=== PATIENT | female | born 1990 | race Caucasian/White ===

== ENCOUNTER → 2018-01-29 | Outpatient (CLI) | payer OTHER | END | disposition home or self-care (01) | LOC: LABWHC1 12:32 | PROVIDERS: ATTEND Obstetrics & Gynecology | DX: N92.6 Irregular menstruation, unspecified (principal) | CPT/HCPCS: 36415; 84702 ==

== ENCOUNTER → 2018-06-24 | Outpatient (CLI) | payer OTHER ==
[2018-06-25 10:38] LABS: Alpha Fetoprotein (M.O.M) 1.98; B-HCG (M.O.M.) 0.35; Gestational Age (days) 0; Inhibin A (M.O.M.) 0.77; Maternal Age at EDD (Yrs) 28; Smoker No; Unconjugated Estriol (M.O.M.) 1.98
== END | disposition home or self-care (01) ==
LOC: LABWHC1 10:41
PROVIDERS: ATTEND Obstetrics & Gynecology
DX: Z34.82 Encounter for supervision of other normal pregnancy, second trimester (principal); Z3A.00 Weeks of gestation of pregnancy not specified
CPT/HCPCS: 36415; 82105; 82677; 84702; 86336; 86762

== ENCOUNTER 2018-11-14 18:39 | Outpatient (CLI) | payer OTHER ==
[2018-11-14 19:34] VITALS: BP 128/75; PULSE 92; RESP 16; TEMP 97.9
--- NOTE | 2018-12-16 13:31 | P.MSEPDOC ---
Presenting Problems - Arrival Data Date of Arrival on Unit: 11/14/18 Time of Arrival on Unit: 18:45 Mode of Transport: Wheelchair Vital Signs - Temperature Temperature: 97.9 F Temperature Source: Temporal Artery Scan - Pulse Right Brachial Pulse Rate: 92 Pulse Assessment Method: Pulse Oximetry - Respirations Respiratory Rate: 16 Oxygen Delivery Method: Room Air O2 Sat by Pulse Oximetry: 96 - Blood Pressure Right Arm Blood Pressure: 128/75 Blood Pressure Mean: 92 Blood Pressure Source: Automatic Cuff Medical Screen Scoring (Post) - Cervical Exam Dilation: 0 cm = 0 Effacement: Exam Deferred Membranes: Intact - Uterine Contractions Frequency: > 5 minutes apart = 1 Duration: N/A Intensity: N/A - Maternal Vital Signs Maternal Temperature: N/A Maternal Blood Pressure: N/A Signs of Preeclampsia: N/A Maternal Respirations: N/A - Assessment Heart Rate: 135 Heart Rate - NICHD Category: Category I (Normal) = 0 NST: Reactive Position: N/A Station: N/A - Total Score Total Score (Post): 1 - Post Treatment Level of Risk Post Treatment Level of Risk: Low (0-5) Physician Notification (Post) - Physician Notified Physician Notified Date: 11/14/18 Physician Notified Time: 19:27 Spoke With: Sarah New Order Received: Yes - Notification Comment Comment: Report given to Dr. Smith including pt negative amnisure, not feeling contractions and feeling baby move. Orders to d/c home at this time, follow up as scheduled. Disposition - Disposition OB Disposition: Discharge to home Discharge Date: 11/14/18 Discharge Time: 19:27 I agree with the RN Medical Screening Exam: Yes Risk & Benefit of care provided described in d/c instruction: Yes Diagnosis: FALSE LABOR AT OR AFTER 37 COMPLETED WEEKS OF GESTATION
== END 2018-11-14 19:27 | disposition home or self-care (01) ==
LOC: FBPOP 18:39
PROVIDERS: ATTEND Obstetrics & Gynecology
DX: O47.1 False labor at or after 37 completed weeks of gestation (principal); Z3A.00 Weeks of gestation of pregnancy not specified
CPT/HCPCS: 59025; 84112; 99213

== ENCOUNTER 2018-11-30 06:05 | Inpatient (IN) | payer OTHER ==
[2018-11-30] MEDS ORDERED: LACTATED RINGERS 1,000 ML IV ONE (06:08)
[2018-11-30] MEDS ORDERED: ceFAZolin IN SWFI 2 GM/20 ML SYRINGE IVP ONE (06:08)
[2018-11-30] MEDS ORDERED: CITRIC ACID-SODIUM CITRATE 15 ML CUP PO ONE (06:08)
[2018-11-30 06:19] VITALS: BMI 38.2
[2018-11-30 06:19] LABS: Glucose,Whole Blood 91 mg/dL (75-99)
[2018-11-30 06:32] LABS: Basophils % (A) 0 %; Eosinophils # (A) 0.1 k/uL (0-0.7); Eosinophils % (A) 1 %; HCT 35.8 % (34.0-46.0); HGB 11.9 gm/dL (11.4-16.0); Lymphocytes # (A) 2.4 k/uL (1.0-4.8); Lymphocytes % (A) 21 %; MCH 27.8 pg (25.0-35.0); MCHC 33.2 g/dL (31.0-37.0); MCV 83.5 fL (80.0-100.0); Mean Platelet Volume 6.9; Monocytes # (A) 0.5 k/uL (0-1.0); Monocytes % (A) 5 %; Neutrophils # (A) 8.2 k/uL (1.3-7.7); Neutrophils % (A) 71 %; Platelet Count 225 k/uL (150-450); RBC 4.28 m/uL (3.80-5.40); RDW 14.3 % (11.5-15.5); WBC 11.5 k/uL (3.8-10.6)
[2018-11-30] MEDS: LACTATED RINGERS 1,000 ML IV SCH ×3 (06:32→20:33)
[2018-11-30] MEDS ORDERED: NALBUPHINE 10 MG/ML (1 ML AMP) ONE (07:50)
[2018-11-30] MEDS ORDERED: MORPHINE SULFATE (PF) 0.3 MG/0.3 ML SYR ONE (07:50)
[2018-11-30] MEDS ORDERED: ONDANSETRON 4 MG/2 ML VIAL ONE (07:50)
[2018-11-30] MEDS ORDERED: KETOROLAC 30 MG/ML 1 ML VIAL ONE (07:50)
[2018-11-30] MEDS ORDERED: PHENYLEPHRINE-0.9% NACL SYG 1 MG/10 ML SYRINGE ONE (07:50)
[2018-11-30] MEDS ORDERED: OXYTOCIN 10 UNIT/ML 1 ML VIAL ONE (07:50)
[2018-11-30] MEDS ORDERED: LACTATED RINGERS 1,000 ML BAG IV ONE (07:50)
[2018-11-30] MEDS ORDERED: ACETAMINOPHEN TAB 325 MG TAB PO PRN (08:34)
[2018-11-30] MEDS ORDERED: KETOROLAC 30 MG/ML 1 ML VIAL IVP PRN (08:34)
[2018-11-30] MEDS ORDERED: diphenhydrAMINE 50 MG/ML 1 ML VIAL IVP PRN ×2 (08:34)
[2018-11-30] MEDS ORDERED: MEASLES-MUMPS-RUBELLA VACC/PF 12,500 UNIT/0.5 ML VIAL SQ ONE (08:34)
[2018-11-30] MEDS ORDERED: METOCLOPRAMIDE 5 MG/ML 2 ML VIAL IVP PRN (08:34)
[2018-11-30] MEDS ORDERED: IBUPROFEN 600 MG TAB PO PRN (08:34)
[2018-11-30] MEDS ORDERED: ZOLPIDEM 5 MG TAB PO PRN (08:34)
[2018-11-30] MEDS ORDERED: diphenhydrAMINE 25 MG CAP PO PRN (08:34)
[2018-11-30] MEDS ORDERED: NALOXONE 0.4 MG/ML 1 ML VIAL IV PRN (08:34)
[2018-11-30] MEDS ORDERED: diphenhydrAMINE 50 MG CAP PO PRN (08:34)
[2018-11-30] MEDS ORDERED: ONDANSETRON 4 MG/2 ML VIAL IVP PRN (08:34)
[2018-11-30] MEDS ORDERED: HYDROcodone/APAP 7.5-325MG 1 EACH TAB PO PRN (08:34)
--- NOTE | 2018-11-30 08:36 | P.HPOB ---
History of Present Illness H&P Date: 11/30/18 Chief Complaint: Intrauterine at term: Previous section: Family planning: Yong Gomez is a 28-year-old at 39 and 5 weeks gestation arise for repeat section with tubal ligation. Her Precis course was, complicated by gestational diabetes type AII. She did have well controlled sugars 1 start on insulin however. Otherwise she did very well with the and she is feeling well at this time. Pertinent labs include A+ blood type, Rh antibody was negative, rubella was equivocal. Hepatitis B surface antigen/RPR/GBS were all negative. On physical exam vital signs are stable and afebrile. Heart regular, lungs clear, extremities are without pain. Abdomen soft nontender gravid uterus is noted. Category 1 tracing is noted. Past Medical History Past Medical History: No Reported History History of Any Multi-Drug Resistant Organisms: None Reported Past Surgical History: Section Past Anesthesia/Blood Transfusion Reactions: No Reported Reaction Past Psychological History: No Psychological Hx Reported Smoking Status: Never smoker Past Alcohol Use History: None Reported Past Drug Use History: None Reported - Past Family History Mother Family Medical History: Cancer Father Family Medical History: Diabetes Mellitus Medications and Allergies Home Medications Medication Instructions Recorded Confirmed Type Insulin Regular, Human [humulin R 15 units SQ ONCE 11/30/18 11/30/18 History U-500 Kwikpen] Pnv No.95/Ferrous Fum/Folic AC 1 tab PO ONCE 11/30/18 11/30/18 History [ Multivitamin Tablet] Allergies Allergy/AdvReac Type Severity Reaction Status Date / Time No Known Allergies Allergy Verified 11/14/18 18:45 Exam Osteopathic Statement: *. No significant issues noted on an osteopathic structural exam other than those noted in the History and Physical/Consult. Vital Signs Temp Pulse Resp BP Pulse Ox 11/30/18 06:15 97.5 F L 101 H 16 139/80 99 Intake and Output 11/29/18 11/30/18 11/30/18 22:59 06:59 14:59 Other: Weight 94.801 kg - OBG Physical Exam Breast: both: normal (no masses) Abdomen: bowel sounds normal, no diffuse tenderness, no bruit present, no guarding noted, no hepatomegaly, no splenomegaly, no mass Vulva: both: normal Vagina: normal moisture, no discharge Cervix: no lesion, no discharge Uterus: normal size, normal contour Adnexa: both: normal Anus/Rectum: normal perianal skin, no rectal mass, no hemorrhoids, heme negative Results Result Diagrams: 11/30/18 05:30 Abnormal Lab Results - Last 24 Hours (Table) 11/30/18 Range/Units 05:30 WBC 11.5 H (3.8-10.6) k/uL Neutrophils # 8.2 H (1.3-7.7) k/uL
--- NOTE | 2018-11-30 08:39 | P.OP ---
Date of Procedure: 11/30/18 Preoperative Diagnosis: Intrauterine term: Previous section: Family planning coaling GDM A2 Postoperative Diagnosis: Same Procedure(s) Performed: Repeat low transverse section with tubal occlusion Anesthesia: spinal Surgeon: Brant Boss Grain Elevator Motor Starter #1: Shae Nieto Estimated Blood Loss (ml): 700 IV fluids (ml): 900 Urine output (ml): 100 Pathology: other (Placenta) Condition: stable Disposition: floor Operative Findings: Male scores of 9 and 9 at one and 5 minutes respectively and the weight was 6 lbs. 14 oz. Description of Procedure: Patient was taken to the operating suite where a spinal anesthetic was found be adequate. She was prepped and draped in the normal sterile fashion and placed in dorsal supine position with leftward tilt. Initially a Pfannenstiel skin incision was made and this incision was then carried through to underlying layer of the fascia was second knife. Fascia was then nicked in the midline and this opening was extended laterally with Sylvester scissors. Superior and inferior aspect of this incision were then grasped tented up and bluntly and sharply dissected off the rectus muscles. Rectus muscles were then divided the midline and sharp dissection through the peritoneum was made. This opening was then extended superiorly and inferiorly with good visualization of both bowel bladder. Bladder blade was then placed bladder identified vesicouterine peritoneum entered with scissor and carried across face uterus with Metzenbaums. Bladder was then bluntly dissected out of the operative field. Knife was then used to incise uterus. This opening was then fully developed with hemostat and extended bluntly. Head was atraumatically delivered mouth nares were bulb suctioned. Nuchal cord 1 was easily reduced. Once this was accomplished the remainder the baby shoulders and baby were delivered with gentle downward and upward traction followed by the remainder the baby. Mouth and nares again were bulb suctioned and the umbilical cord was clamped cut usual fashion. Nursery personnel was present to assume care. Placenta was then delivered intact and Pitocin was added to the IV. Uterus was then exteriorized cleared of clots and debris and closed in 1 layer with 0 Vicryl suture. Once excellent hemostasis was obtained what and debris was suctioned from the posterior cul-de-sac. Fallopian tubes were then identified and a Filshie clip was applied 2 cm from uterine cornu bilaterally. No bleeding is noted in the mesosalpinx therefore all instruments were removed from the abdomen and uterus was reinserted into the abdomen. Peritoneal layer was defined with hemostats and then closed with 0 Vicryl suture. Fascial layer was then closed with 0 Vicryl suture. One layer of 3-0 Vicryl was placed in the deep subcuticular tissues to reapproximate skin and close the space. Skin was then closed with 3-0 Vicryl. Sponge, lap, needle counts were all correct 2. Patient was then taken to the recovery room in stable and satisfactory condition.
[2018-11-30] MEDS: SENNOSIDES-DOCUSATE SODIUM 1 EACH TAB PO SCH (19:40)
[2018-11-30 21:47] LABS: Hemoglobin A1C 5.4 % (4.0-6.0)
[2018-12-01] MEDS: LACTATED RINGERS 1,000 ML IV SCH (01:20)
[2018-12-01 06:52] LABS: Basophils % (A) 0 %; Eosinophils # (A) 0.1 k/uL (0-0.7); Eosinophils % (A) 1 %; HGB 10.7 gm/dL (11.4-16.0); Lymphocytes # (A) 2.4 k/uL (1.0-4.8); Lymphocytes % (A) 28 %; MCH 27.7 pg (25.0-35.0); MCHC 32.5 g/dL (31.0-37.0); MCV 85.3 fL (80.0-100.0); Mean Platelet Volume 6.2; Monocytes # (A) 0.5 k/uL (0-1.0); Monocytes % (A) 6 %; Neutrophils # (A) 5.3 k/uL (1.3-7.7); Neutrophils % (A) 62 %; Platelet Count 242 k/uL (150-450); RBC 3.87 m/uL (3.80-5.40); RDW 14.4 % (11.5-15.5); WBC 8.6 k/uL (3.8-10.6)
[2018-12-01] MEDS: SIMETHICONE 80 MG CHEWABLE PO PRN ×2 (07:43→22:44)
--- NOTE | 2018-12-01 10:59 | P.PNOBGPC ---
Subjective - Subjective Principal diagnosis: Postop day 1 Interval history: Doing very well. Other than generalized stiffness and soreness she has no complaints. Patient reports: Reports appetite normal, Reports voiding normally, Reports pain well controlled, Reports ambulating normally Stow: doing well Objective - Vital Signs Latest vital signs: Vital Signs Temp Pulse Resp BP Pulse Ox 12/01/18 08:00 98.7 F 87 16 121/70 97 12/01/18 04:00 98.8 F 90 14 106/69 97 12/01/18 00:00 98.9 F 87 18 109/78 98 11/30/18 20:00 98.9 F 87 16 111/64 96 11/30/18 16:00 98.5 F 96 18 127/74 99 11/30/18 12:00 98.2 F 80 16 128/62 99 Intake and Output 11/30/18 12/01/18 12/01/18 22:59 06:59 14:59 Intake Total 1000 Output Total 100 900 Balance 900 -900 Intake: Intake, IV Titration 1000 Amount Lactated Ringers 1,000 ml 1000 @ 125 mls/hr IV .Q8H PIERRE Rx#:[id number] Output: Urine 100 900 Uretheral ([place]) 100 Other: # Voids 150 1 1 - Exam Lungs: bilateral: normal Chest: Normal S1, Normal S2 Extremities: Present: normal Abdomen: Present: normal appearance, soft. Absent: distention, tenderness Incision: Present: normal, dry, intact Uterus: Present: normal, firm - Labs Labs: Abnormal Lab Results - Last 24 Hours (Table) 12/01/18 Range/Units 06:27 Hgb 10.7 L (11.4-16.0) gm/dL Hct 33.0 L (34.0-46.0) %
--- NOTE | 2018-12-01 11:47 | P.PN ---
Progress Note - Text Anesthesia POD 1. Patient is status post section under spinal anesthesia with intra-thecal preservative free morphine 300 g. Mild pruritus, good post-op analgesia, and no headache or other complications.
[2018-12-01] MEDS: SENNOSIDES-DOCUSATE SODIUM 1 EACH TAB PO SCH (15:11)
[2018-12-02] MEDS: LACTATED RINGERS 1,000 ML IV SCH (02:02)
[2018-12-02] MEDS: SENNOSIDES-DOCUSATE SODIUM 1 EACH TAB PO SCH (02:02)
--- NOTE | 2018-12-02 08:28 | P.DS ---
Providers Date of admission: 11/30/18 06:05 Expected date of discharge: 12/02/18 Attending physician: Brant Boss Primary care physician: Stated None Hospital Course: Patricia is doing very well post op day 2. She is ambulating, voiding, and she is tolerating her diet. She voices no complaints and is requesting discharge home today. Prescription for Motrin and [place] were 40 to her pharmacy. All questions were answered for her and discharge instruction thoroughly reviewed. On physical exam her vital signs are stable and afebrile. Heart regular, lungs clear, extremities are without pain. Abdomen soft and nontender. Incision is clean dry and intact. Uterus is firm and lochia is reported be light. Assessment post op day 2. Plan discharged home follow up with me in 1 week. Patient Condition at Discharge: Good Plan - Discharge Summary New Discharge Prescriptions: New HYDROcodone/APAP 5-325MG [[place] 5-325] 1 tab PO Q4HR PRN #30 tab PRN Reason: Pain Ibuprofen [Motrin] 600 mg PO Q6HR PRN #30 tab PRN Reason: Pain No Action Insulin Regular, Human [humulin R U-500 Kwikpen] 15 units SQ ONCE Pnv No.95/Ferrous Fum/Folic AC [ Multivitamin Tablet] 1 tab PO ONCE Discharge Medication List Insulin Regular, Human [humulin R U-500 Kwikpen] 15 units SQ ONCE 11/30/18 [ History] Pnv No.95/Ferrous Fum/Folic AC [ Multivitamin Tablet] 1 tab PO ONCE 01/15 [History] HYDROcodone/APAP 5-325MG [[place] 5-325] 1 tab PO Q4HR PRN #30 tab 12/02/18 [Rx] Ibuprofen [Motrin] 600 mg PO Q6HR PRN #30 tab 12/02/18 [Rx] Follow up Appointment(s)/Referral(s): Brant Boss DO [Doctor of Osteopathic Medicine] - 1 Week Activity/Diet/Wound Care/Special Instructions: No heavy lifting, limit stairs and driving, and pelvic rest. If any high temperatures, heavy bleeding, or severe pain call my office Discharge Disposition: HOME SELF-CARE
[2018-12-02 09:01] VITALS: BP 114/78; PULSE 95; RESP 18; TEMP 98.2
== END 2018-12-02 11:20 | disposition home or self-care (01) | DRG 785 ==
LOC: 4FBP 06:05
PROVIDERS: ADMIT Obstetrics & Gynecology; ATTEND Obstetrics & Gynecology
PROC: 0UL70CZ Occlusion of Bilateral Fallopian Tubes with Extraluminal Device, Open Approach (ICD-10-PCS; principal; 2018-11-30 08:00)
PROC: 10D00Z1 Extraction of Products of Conception, Low, Open Approach (ICD-10-PCS; principal; 2018-11-30 08:00)
DX: O34.211 Maternal care for low transverse scar from previous cesarean delivery (principal); O69.81X0 Labor and delivery complicated by cord around neck, without compression, not applicable or unspecified; Z30.2 Encounter for sterilization; Z37.0 Single live birth; Z3A.39 39 weeks gestation of pregnancy; Z83.3 Family history of diabetes mellitus; O24.424 Gestational diabetes mellitus in childbirth, insulin controlled
CPT/HCPCS: 83036; 85025; 86850; 86900; 86901; 88307; 90707

== ENCOUNTER → 2019-03-15 | Outpatient (CLI) | payer OTHER ==
[2019-03-15 22:16] LABS: Hemoglobin A1C 5.4 % (4.0-6.0)
== END | disposition home or self-care (01) ==
LOC: LABWHC1 12:37
PROVIDERS: ATTEND Internal Medicine
DX: O24.419 Gestational diabetes mellitus in pregnancy, unspecified control (principal)
CPT/HCPCS: 36415; 83036

== ENCOUNTER 2021-09-07 21:36 | Emergency (ER) | payer BC, OTHER ==
[2021-09-07 21:46] VITALS: TEMP 99
--- NOTE | 2021-09-07 22:15 | ED ---
Chest Pain HPI - General Chief Complaint: Chest Pain Stated Complaint: Chest Pain Time Seen by Provider: 09/07/21 22:05 Source: patient Mode of arrival: wheelchair Limitations: no limitations - History of Present Illness MD Complaint: chest pain -: hour(s) Onset: during rest Pain Location: right chest Pain Radiation: back Severity: severe Quality: aching, sharp Consistency: constant Improves With: nothing Worsens With: inspiration Treatments Prior to Arrival: none - Related Data Home Medications Medication Instructions Recorded Confirmed Insulin Regular, Human [humulin R 15 units SQ ONCE 11/30/18 11/30/18 U-500 Kwikpen] Pnv No.95/Ferrous Fum/Folic AC 1 tab PO ONCE 11/30/18 11/30/18 [ Multivitamin Tablet] Previous Rx's Medication Instructions Recorded HYDROcodone/APAP 5-325MG [[place] 1 tab PO Q4HR PRN #30 tab 12/02/18 5-325] Ibuprofen [Motrin] 600 mg PO Q6HR PRN #30 tab 12/02/18 Azithromycin [Zithromax Z-pack (6 250 mg PO DIRECTED #6 tab 09/08/21 tabs)] Allergies Allergy/AdvReac Type Severity Reaction Status Date / Time No Known Allergies Allergy Verified 09/07/21 21:43 Review of Systems ROS Statement: Those systems with pertinent positive or pertinent negative responses have been documented in the HPI. ROS Other: All systems not noted in ROS Statement are negative. Constitutional: Denies: fever, chills, weakness Respiratory: Denies: cough, dyspnea, wheezes Cardiovascular: Reports: as per HPI, chest pain. Denies: palpitations, orthopnea, edema, syncope Gastrointestinal: Denies: abdominal pain, nausea, vomiting, diarrhea Genitourinary: Denies: dysuria, hematuria Musculoskeletal: Denies: back pain Skin: Denies: rash Neurological: Denies: headache, weakness EKG Findings - EKG Results: EKG: interpreted by ERMD, sinus rhythm, normal axis, normal QRS, normal ST/T EKG shows: tachycardia (Rate 126 bpm) - Blocks, [place], Hypertrophy, ST Abn: Chamber hypertrophy or enlargement: only voltage criteria for left ventricular hypertrophy Past Medical History Past Medical History: No Reported History History of Any Multi-Drug Resistant Organisms: None Reported Past Surgical History: Section Past Anesthesia/Blood Transfusion Reactions: No Reported Reaction Past Psychological History: No Psychological Hx Reported Smoking Status: Former smoker Past Alcohol Use History: Occasional Past Drug Use History: None Reported - Past Family History Mother Family Medical History: Cancer Father Family Medical History: Diabetes Mellitus General Exam Limitations: no limitations General appearance: alert, in no apparent distress Head exam: Present: atraumatic, normocephalic Eye exam: Present: normal appearance. Absent: scleral icterus, conjunctival injection ENT exam: Present: normal oropharynx Neck exam: Present: normal inspection Respiratory exam: Present: normal lung sounds bilaterally. Absent: respiratory distress, wheezes, rales, rhonchi, stridor, chest wall tenderness, accessory muscle use, decreased breath sounds Cardiovascular Exam: Present: normal rhythm, tachycardia, normal heart sounds. Absent: systolic murmur, diastolic murmur, rubs, gallop GI/Abdominal exam: Present: soft. Absent: distended, tenderness, guarding, rebound, rigid, mass, pulsatile mass, hernia Extremities exam: Present: normal inspection, normal capillary refill. Absent: pedal edema, calf tenderness Back exam: Present: normal inspection. Absent: CVA tenderness (R), CVA tenderness (L) Neurological exam: Present: alert Psychiatric exam: Present: anxious Skin exam: Present: warm, dry, intact, normal color. Absent: rash Course Vital Signs 09/07/21 09/07/21 09/07/21 21:43 22:44 22:54 Temperature 99.0 F Pulse Rate 132 H 115 H Pulse Rate [ 122 H Pulse Oximetery ] Respiratory 20 20 Rate Blood Pressure 115/66 122/82 O2 Sat by Pulse 98 99 Oximetry Disposition Clinical Impression: Pneumonia Disposition: HOME SELF-CARE Condition: Good Instructions (If sedation given, give patient instructions): Pneumonia (ED) Prescriptions: Azithromycin [Zithromax Z-pack (6 tabs)] 250 mg PO DIRECTED #6 tab Is patient prescribed a controlled substance at d/c from ED?: No Referrals: Francisco Gleason [Primary Care Provider] - 1-2 days
--- NOTE | 2021-09-07 22:30 | XR ---
EXAMINATION TYPE: XR chest 1V portable DATE OF EXAM: 09/07/2021 COMPARISON: NONE HISTORY: Chest pain TECHNIQUE: Single view FINDINGS: Heart is normal. There is a mild airspace pneumonia lateral right lung base. The left lung is clear. There is no heart failure. There are chest leads. IMPRESSION: Mild right lower lobe pneumonia. Normal heart.
[2021-09-07 22:46] LABS: Basophils # (A) 0.1 k/uL (0-0.2); Basophils % (A) 0 %; Eosinophils # (A) 0.1 k/uL (0-0.7); Eosinophils % (A) 1 %; HCT 41.5 % (34.0-46.0); HGB 13.9 gm/dL (11.4-16.0); Lymphocytes # (A) 1.5 k/uL (1.0-4.8); Lymphocytes % (A) 9 %; MCH 29.2 pg (25.0-35.0); MCHC 33.6 g/dL (31.0-37.0); MCV 86.8 fL (80.0-100.0); Mean Platelet Volume 7.2; Monocytes # (A) 0.8 k/uL (0-1.0); Monocytes % (A) 5 %; Neutrophils # (A) 13.9 k/uL (1.3-7.7); Neutrophils % (A) 84 %; Platelet Count 290 k/uL (150-450); RBC 4.78 m/uL (3.80-5.40); RDW 12.6 % (11.5-15.5); WBC 16.5 k/uL (3.8-10.6)
[2021-09-07 22:54] VITALS: BP 122/82
[2021-09-07 22:59] LABS: ALT 21 U/L (4-34); AST 22 U/L (14-36); African American GFR (CKD) >90 (>60 ml/min/1.73 sqM); Albumin 4.2 g/dL (3.5-5.0); Alkaline Phosphatase 110 U/L (38-126); Amylase 50 U/L (30-110); Anion Gap 9 mmol/L; Blood Urea Nitrogen 9 mg/dL (7-17); Calcium 9.5 mg/dL (8.4-10.2); Carbon Dioxide 28 mmol/L (22-30); Chloride 99 mmol/L (98-107); Glucose 149 mg/dL (74-99); INR 0.9 (<1.2); Lipase 38 U/L (23-300); Magnesium 1.8 mg/dL (1.6-2.3); Non-African American GFR(CKD) >90 (>60 ml/min/1.73 sqM); Partial Thromboplastin Time 23.5 sec (22.0-30.0); Potassium 3.9 mmol/L (3.5-5.1); Prothrombin Time 9.7 sec (9.0-12.0); Sodium 136 mmol/L (137-145); Total Bilirubin 0.4 mg/dL (0.2-1.3); Total Protein 7.2 g/dL (6.3-8.2)
--- NOTE | 2021-09-08 01:04 | CT ---
EXAMINATION TYPE: CT chest angio for PE DATE OF EXAM: 09/08/2021 COMPARISON: None HISTORY: elevated d-dimer CT DLP: 557.5 mGycm Automated exposure control for dose reduction was used. CONTRAST: Performed with IV Contrast, patient injected with 80 mL of Isovue 370. There are 3-D post processed images. There is a wedge-shaped area of consolidation in the lateral basal segment right lower lobe adjacent to the diaphragm. The other lung chris are fairly clear. There is no pleural effusion. Heart size is fairly normal. There are a few right bronchial lymph nodes up to 1.3 cm. There is no mediastinal chanda nopathy. There are no hilar masses. There is normal contrast opacification of the pulmonary arteries. There are no filling defects. Thora cic aorta is intact. There is no aneurysm or dissection. The thoracic spine is intact. Sternum is int act. IMPRESSION: No evidence of pulmonary embolism. Right lower lobe pneumonia. Mild right side bronchial adenopathy.
[2021-09-08] MEDS ORDERED: AZITHROMYCIN 500 MG TAB PO STA (01:10)
[2021-09-08] MEDS ORDERED: SODIUM CHLORIDE 0.9% 1,000 ML IV STA (01:33)
[2021-09-08] MEDS ORDERED: SODIUM CHLORIDE 0.9% 1,000 ML IV ONE (01:33)
[2021-09-08 02:24] VITALS: PULSE 102; RESP 18
== END 2021-09-08 03:11 | disposition home or self-care (01) ==
LOC: EC 21:36
DX: J18.9 Pneumonia, unspecified organism (principal); Z87.891 Personal history of nicotine dependence; Z79.4 Long term (current) use of insulin; Z79.1 Long term (current) use of non-steroidal anti-inflammatories (NSAID); Z83.3 Family history of diabetes mellitus
CPT/HCPCS: 36415 ×2; 93005; 85379; 80053; 82150; 83690; 83735; 84484; 85025; 85610; 85730; 81025; 87040; 87635; 71045; 71275; 99285; 96365; J0696; Q9967